=== PATIENT | female | born 1985 | race Two or more races ===

== ENCOUNTER 2025-06-11 17:40 | Emergency (ER) | payer BC ==
[~2025-06-11] VITALS: Ht 162.6 cm; Wt 95.3 kg
[2025-06-11 18:02] VITALS: TEMP 98.7
[2025-06-11] MEDS ORDERED: Magnesium 1GM/D5W 100ML PREMIX 100 ML IV ONE (18:28)
[2025-06-11] MEDS: IV NS 0.9% 1,000 ML IV ONE (18:40)
[2025-06-11] MEDS: Magnesium 1GM/D5W 100ML PREMIX 200 ML IV ONE (18:40)
[2025-06-11 19:11] LABS: PLATELET COUNT (AUTO) 257 K/uL (150-450); RED BLOOD CELL COUNT(AUTO) 4.18 MIL/uL (4.0-5.2); RED CELL DISTRIBUTION WIDTH 12.9 % (11.5-15.0); WHITE BLOOD COUNT (AUTO) 5.9 K/uL (4.3-11.0)
[2025-06-11 19:18] LABS: CALCIUM, SERUM 8.7 mg/dL (8.5-10.1); CREATININE 0.7 mg/dL (0.6-1.3); SODIUM SERUM 140.0 mmol/L (136-145); UREA NITROGEN, BLOOD 12.0 mg/dL (7-18)
[2025-06-11] MEDS ORDERED: BENZ-13 PO (20:38)
[2025-06-11 21:20] VITALS: BP 130/81; O2SAT 98
== END 2025-06-11 21:21 | disposition home or self-care (01) ==
LOC: ER 17:53
DX: J45.901 Unspecified asthma with (acute) exacerbation (principal); E03.9 Hypothyroidism, unspecified; R00.2 Palpitations; Z79.2 Long term (current) use of antibiotics; Z88.1 Allergy status to other antibiotic agents
CPT/HCPCS: 99285; 96365; 71045; 96366; 93005; 85025; 80048; 36415; J7030; J3475